=== PATIENT | male | born 1945 | race Caucasian/White ===

== ENCOUNTER 2017-11-05 12:58 | Emergency (ER) | payer OTHER ==
[2017-11-05 14:29] VITALS: BP 163/65; PULSE 76; RESP 18; TEMP 98.5
[2017-11-05 15:08] LABS: Basophils % (A) 1 %; Eosinophils # (A) 0.2 k/uL (0-0.7); Eosinophils % (A) 3 %; HCT 43.1 % (39.0-53.0); Lymphocytes # (A) 2.2 k/uL (1.0-4.8); Lymphocytes % (A) 32 %; MCH 31.4 pg (25.0-35.0); MCHC 34.8 g/dL (31.0-37.0); MCV 90.3 fL (80.0-100.0); Mean Platelet Volume 6.8; Monocytes # (A) 0.5 k/uL (0-1.0); Monocytes % (A) 6 %; Neutrophils # (A) 3.9 k/uL (1.3-7.7); Neutrophils % (A) 56 %; Platelet Count 168 k/uL (150-450); RBC 4.78 m/uL (4.30-5.90); RDW 12.8 % (11.5-15.5)
[2017-11-05 15:13] LABS: Appearance,Urine Clear (Clear); Bilirubin,Urine Negative (Negative); Blood,Urine Negative (Negative); Color,Urine Yellow; Glucose,Urine (UA) Negative (Negative); Ketones,Urine Negative (Negative); Leukocyte Esterase,Urine Negative (Negative); Nitrite,Urine Negative (Negative); Protein,Urine Trace (Negative); Specific Gravity,Urine 1.028 (1.001-1.035)
[2017-11-05 15:28] LABS: Albumin 4.2 g/dL (3.5-5.0); Calcium 9.6 mg/dL (8.4-10.2); Potassium 4.4 mmol/L (3.5-5.1); Total Bilirubin 0.7 mg/dL (0.2-1.3); Total Protein 6.7 g/dL (6.3-8.2)
[2017-11-05] MEDS ORDERED: SODIUM CHLORIDE 0.9% 500 ML IV STA (16:36)
[2017-11-05] MEDS ORDERED: ONDANSETRON 4 MG/2 ML VIAL IVP STA (16:36)
[2017-11-05] MEDS ORDERED: MORPHINE SULFATE 4 MG/ML SYRINGE IV STA (16:36)
--- NOTE | 2017-11-05 16:40 | ED ---
General Adult HPI - General Chief complaint: Abdominal Pain Stated complaint: Possible kidney Stone Time Seen by Provider: 11/05/17 16:21 Source: patient, family, RN notes reviewed Mode of arrival: ambulatory Limitations: no limitations - History of Present Illness Initial comments: Chief complaint history of present illness a 72-year-old male here with his significant other. The patient reports over the past weeks been having on- again off-again right flank pain. Today is much worse. The patient's walking around the room slightly bent over no nausea no vomiting pains on the right flank. Does have a past history of having had 2 kidney stones. - Related Data Previous Rx's Medication Instructions Recorded Hydrocodone/Acetaminophen [Andrew 1 each PO Q6HR PRN #12 tab 11/05/17 5-325] Allergies Allergy/AdvReac Type Severity Reaction Status Date / Time No Known Allergies Allergy Verified 11/05/17 14:29 Review of Systems ROS Statement: Those systems with pertinent positive or pertinent negative responses have been documented in the HPI. Review of systems. No headache chest pain shortness of breath or GI problems. He reports lately he's had decreased urination as well as increase his fluid intake. All systems reviewed. Past medical problems significant for having passed kidney stones twice in the past. Denies any surgeries. Family history no cancers but his son has had kidney stones. Patient denies any ALLERGIES. He is a nonsmoker. Does drink alcohol. ROS Other: All systems not noted in ROS Statement are negative. Past Medical History Additional Past Medical History / Comment(s): kidney stones History of Any Multi-Drug Resistant Organisms: None Reported Past Surgical History: No Surgical Hx Reported Past Psychological History: Depression Smoking Status: Never smoker Past Alcohol Use History: None Reported, Daily Past Drug Use History: None Reported General Exam - General Exam Comments Initial Comments: General: The patient is awake and alert, mild to moderate distress because of right flank pain. The patient prefers to stand and move around the room because of discomfort he states he thinks he has a kidney stone. Vital signs temperature 98.5 pulse 76 respiratory rate 18 pulse ox 97% room air blood pressure 163/65 Eye: Pupils are equal, round and reactive to light, extra-ocular movements are intact ; there is normal conjunctiva bilaterally. No signs of icterus. Ears, nose, mouth and throat: There are moist mucous membranes and no oral lesions. Neck: The neck is supple, there is no tenderness . Cardiovascular: There is a regular rate and rhythm. No murmur, rub or gallop is appreciated. Respiratory: Lungs are clear to auscultation, respirations are non-labored, breath sounds are equal. No wheezes, stridor, rales, or rhonchi. Gastrointestinal: Soft, non-distended, non-tender abdomen without masses or organomegaly noted. There is no rebound or guarding present. No CVA tenderness. Bowel sounds are unremarkable. Back: Patient complains of right flank area pain. No rashes noted. Musculoskeletal: Full range of motion upper and lower extremities. No complaint of numbness or tingling. Skin: Skin is warm and dry and no rashes or lesions are noted. Limitations: no limitations Course Vital Signs 11/05/17 14:26 Temperature 98.5 F Pulse Rate 76 Respiratory 18 Rate Blood Pressure 163/65 O2 Sat by Pulse 97 Oximetry Medical Decision Making - Medical Decision Making Medical decision making; this is a 72-year-old male here with significant other. The patient has had history of kidney stones on 2 previous occasions. Patient thinks she is having another one on the right side. He's had on-again off-again pain for 2 weeks. He does the typical walking around the room feeling discomfort mild nausea but no vomiting at this time. Pains on the right flank. He also reports is somewhat decreased urination lately. Labs show white count of 7 hemoglobin 15 hematocrit of 43, potassium 4.4 BUN 17 creatinine 1.1 GFR 60. Urine clean no signs of infection or blood. Two-view x-ray of the abdomen was done and reviewed by radiologist his findings are; there is a normal bowel gas pattern. No suspicious air-fluid levels or differential air fluid levels just present. No free air is present. Psoas margins are normal. No organomegaly is present. No suspicious calcifications are evident. Impression unremarkable abdomen. As read by Dr. Blair CT of the abdomen was done reviewed by radiologist his findings include liver there is a 1.3 cm hyperdensity in the anterior left lobe of the liver medially this is nonspecific. Complex cyst or subtle mass could be considered. There is no additional larger hyperdensity along the superior left lobe of the liver measuring 1.6 cm. Spleen normal. Pancreas normal. Adrenal glands left adrenal gland is thickened measuring 1.8 cm transverse an 18 pounds valencia units. Right adrenal gland appears normal. Gallbladder normal. Kidneys no masses are evident. No hydronephrosis is present. No cortical renal cysts are present. Peripelvic cysts on the left are not excluded. No renal stones identified. Aorta vascular calcifications within the aorta. Inferior vena cava normal. CT pelvis loops of bowel within the abdomen and pelvis are normal. Loops of bowel are visualized without contrast limiting the evaluation. Appendix normal as visualized. Urinary bladder normal. Genitourinary structures prostate is prominent. Osseous structures; no suspicious lytic or sclerotic lesions. Scoliosis is present. Impressions; #1 thickened left adrenal gland measuring 18 pounds valencia units. Adenoma could be considered. Other etiologies are not excluded. Consider dynamic CT of the abdomen as patient basis for closer evaluation. #2 no suspicious acute changes to account for right flank pain. As read by Dr. Blair I shared with the patient and the significant other the results of the labs and the CAT scan. We discussed renal colic, stones, even possible kidney tumors. The patient reports the discomfort is no right flank that goes down to the right testicle area. We also discussed the CT findings of the possible adrenal adenoma. The patient will be referred onto a local physician for follow-up here and it be advised [facility] when he returns to [place]. In the meanwhile follow-up locally. - Lab Data Result diagrams: 11/05/17 14:50 11/05/17 14:50 Lab Results 11/05/17 11/05/17 11/05/17 Range/Units 14:50 14:50 14:50 WBC 7.0 (3.8-10.6) k/uL RBC 4.78 (4.30-5.90) m/uL Hgb 15.0 (13.0-17.5) gm/dL Hct 43.1 (39.0-53.0) % MCV 90.3 (80.0-100.0) fL MCH 31.4 (25.0-35.0) pg MCHC 34.8 (31.0-37.0) g/dL RDW 12.8 (11.5-15.5) % Plt Count 168 (150-450) k/uL Neutrophils % 56 % Lymphocytes % 32 % Monocytes % 6 % Eosinophils % 3 % Basophils % 1 % Neutrophils # 3.9 (1.3-7.7) k/uL Lymphocytes # 2.2 (1.0-4.8) k/uL Monocytes # 0.5 (0-1.0) k/uL Eosinophils # 0.2 (0-0.7) k/uL Basophils # 0.0 (0-0.2) k/uL Sodium 140 (137-145) mmol/L Potassium 4.4 (3.5-5.1) mmol/L Chloride 111 H (98-107) mmol/L Carbon Dioxide 23 (22-30) mmol/L Anion Gap 6 mmol/L BUN 17 (9-20) mg/dL Creatinine 1.10 (0.66-1.25) mg/dL Est GFR (CKD-EPI)AfAm 78 (>60 ml/min/1.73 sqM) Est GFR (CKD-EPI)NonAf 68 (>60 ml/min/1.73 sqM) Glucose 98 (74-99) mg/dL Calcium 9.6 (8.4-10.2) mg/dL Total Bilirubin 0.7 (0.2-1.3) mg/dL AST 21 (17-59) U/L ALT 31 (21-72) U/L Alkaline Phosphatase 65 (38-126) U/L Total Protein 6.7 (6.3-8.2) g/dL Albumin 4.2 (3.5-5.0) g/dL Amylase 38 (30-110) U/L Lipase 100 (23-300) U/L Urine Color Yellow Urine Appearance Clear (Clear) Urine pH 6.0 (5.0-8.0) Ur Specific [place] 1.028 (1.001-1.035) Urine Protein Trace H (Negative) Urine Glucose (UA) Negative (Negative) Urine Ketones Negative (Negative) Urine Blood Negative (Negative) Urine Nitrite Negative (Negative) Urine Bilirubin Negative (Negative) Urine Urobilinogen 2.0 (<2.0) mg/dL Ur Leukocyte Esterase Negative (Negative) Disposition Clinical Impression: Renal colic on right side Disposition: HOME SELF-CARE Condition: Fair Instructions: Kidney Stones (ED), Renal Colic (ED) Additional Instructions: Follow-up with a local family doctor or your family doctor and get back to [place]. Follow-up with local urologist. Take all information obtained from today's visit with you. Take medications prescribed. Return emergency room as needed Prescriptions: Hydrocodone/Acetaminophen [Andrew 5-325] 1 each PO Q6HR PRN #12 tab PRN Reason: Pain Is patient prescribed a controlled substance at d/c from ED?: Yes When asked, does pt state using other controlled substances?: No If prescribed controlled substance>3 days was MAPS reviewed?: No If opioid is for acute pain is fill amount 7 days or less?: Yes If Rx opioid, was Start Talking consent form obtained?: Yes Referrals: Nonstaff,Physician [Primary Care Provider] - 1-2 days Emery Mendoza MD [STAFF PHYSICIAN] - 1-2 days Hasrha Norris MD [STAFF PHYSICIAN] - 1-2 days Time of Disposition: 18:56
--- NOTE | 2017-11-05 18:11 | CT ---
EXAMINATION TYPE: CT abdomen pelvis wo con DATE OF EXAM: 11/05/2017 COMPARISON: INDICATION: Right flank pain DLP: 881.6 mGycm, Automated exposure control for dose reduction was used. CONTRAST: mL of . Study performed without Oral Contrast TECHNIQUE: Axial images were obtained from above the diaphragm to the pubic rami in the axial plane a t 5 mm thick sections. Reconstructed images are reviewed on the computer in the coronal plane. FINDINGS: Limited CT sections are obtained the lung bases. The lung bases are clear. There may be a fat-conta ining hernia within the periesophageal region. CT ABDOMEN: Liver: There is a 1.3 cm hypodensity in the anterior left lobe liver medially this is nonspecific. Co mplex cyst or subtle mass could be considered. There is an additional larger hypodensity along the martinez perior left lobe liver measuring 1.6 cm. Spleen: Normal Pancreas: Normal Adrenal glands: Left adrenal gland is thickened measuring 1.8 cm transverse and 18 Hounsfield units.. Right adrenal gland appears normal. Gallbladder: Normal Kidneys: No masses are evident. No hydronephrosis is present. No cortical renal cysts are present. Peripelvic cysts on the left are not excluded. No renal stones are identified. Aorta: Vascular calcification is within the aorta. Inferior vena cava: Normal. CT PELVIS: Loops of bowel within the abdomen and pelvis are normal. Loops of bowel are visualized without co ntrast limiting their evaluation. Appendix: Normal as visualized. Urinary bladder: Normal. Genitourinary structures: Prostate is prominent. Osseous structures: No suspicious lytic or sclerotic lesions. Scoliosis is present. IMPRESSIONS: 1. Thickened left adrenal gland measuring 18 Hounsfield units. Adenoma could be considered. Other et iologies are not excluded. Consider dynamic CT abdomen is outpatient basis for closer evaluation. 2. No suspicious acute changes to account for right flank pain.
--- NOTE | 2017-11-05 18:31 | XR ---
EXAMINATION TYPE: XR abdomen 2V DATE OF EXAM: 11/05/2017 COMPARISON: None INDICATION: Right flank pain TECHNIQUE: Single view abdomen upright view FINDINGS: There is a normal bowel gas pattern. No suspicious air-fluid levels or differential air-fluid levels are present. No free air is present. Psoas margins are normal. No organomegaly is present. No suspicious calcifications are evident. IMPRESSION: 1. Unremarkable Abdomen
== END 2017-11-05 19:54 | disposition home or self-care (01) ==
LOC: EC 12:58
DX: N23 Unspecified renal colic (principal)
CPT/HCPCS: 36415; 80053; 82150; 83690; 85025; 81003; 87086; 74019; 74176; 99284; 96374; 96375; 96361 ×3; J2270; J2405